=== PATIENT | male | born 1990 | race Caucasian/White ===

== ENCOUNTER 2021-03-06 15:31 | Emergency (ER) | payer MEDICAID ==
[~2021-03-06] VITALS: Ht 170.2 cm; Wt 71.3 kg
[2021-03-06 15:36] VITALS: BP 151/89
[2021-03-06] MEDS ORDERED: LORazepam 1 MG TAB PO ONE (15:45)
[2021-03-06] MEDS ORDERED: DIVALPROEX 500 MG TABEC PO ONE (15:45)
--- NOTE | 2021-03-06 16:00 | NUR ---
30 Y/O MALE C/O FEELING UNWELL AFTER BEING OFF DEPAKOTE X1 WEEK. PT REPORTS HE HAS BEEN HAVING AN AURA SINCE THIS MORNING. C/O DIFFICULTY FOCUSING, SHARP PAIN IN BACK OF EYES, BACK PAIN, FEELS LIKE HE IS SHAKING AND "FEELS LIKE IM WALKING ON WATER". PT UNAWARE IF HE HAD SEIZURE THIS MORNING STATED THAT HE WOKE UP CONFUSED. PT ADMITS TO DRINKING LAST NIGHT WHICH HAS CAUSED SEIZURES IN THE PAST, "6 BEERS AND A FEW SHOTS". PT REPORTS THAT HE JUST HASNT PICKED UP HIS PRESCRIPTIONS SINCE HE HAS BEEN [place] OF T[place]. PT A/O X4 WITH EVEN AND UNLABORED RESPIRATIONS, NO SIGNS OF DISTRESS AT THIS TIME. PMH:SEIZURES, ALCOHOL AND STRESS INDUCED ALLERGIES:PCN
[2021-03-06 16:40] LABS: MAGNESIUM 1.8 mg/dL (1.8-2.4)
[2021-03-06 16:44] LABS: ANION GAP 21.6 (8-16); CARBON DIOXIDE 22.8 mmol/L (21-32); POTASSIUM 4.4 mmol/L (3.5-5.1)
[2021-03-06] MEDS ORDERED: DEPER500 PO (17:16)
[2021-03-06] MEDS ORDERED: DIVA500E1 PO (17:18)
--- NOTE | 2021-03-06 18:00 | NUR ---
Patient discharged with v/s stable. Written and verbal after care instructions ABOUT SEIZURE AND ALCOHOL USE DISORDER given and explained. Patient alert, oriented and verbalized understanding of instructions. Ambulatory with steady gait. All questions addressed prior to discharge. ID band removed. Patient advised to follow up with PMD. Rx of DEPAKOTE given. Patient educated on indication of medication including possible reaction and side effects. Opportunity to ask questions provided and answered.
== END 2021-03-06 18:00 | disposition home or self-care (01) ==
LOC: MED 15:31
DX: F17.210 Nicotine dependence, cigarettes, uncomplicated (principal); M79.10 Myalgia, unspecified site; R51.9 Headache, unspecified; R11.0 Nausea; Z88.0 Allergy status to penicillin
CPT/HCPCS: 36415; 80048; 83735; 99283; G0482